=== PATIENT | female | born 1960 | race African-American/Black ===

== ENCOUNTER 2019-09-11 15:59 | Emergency (ER) | payer OTHER ==
[~2019-09-11] VITALS: Ht 172.7 cm; Wt 112.0 kg
[2019-09-11 16:10] VITALS: BP 122/86
--- NOTE | 2019-09-11 16:22 | PHYS DOC ---
Past History Past Medical History: Diabetes, Hypertension Past Surgical History: No Surgical History Alcohol Use: Rarely Drug Use: None Adult General Chief Complaint Chief Complaint: UPPER EXTREMITY INJURY HPI HPI Patient is a 58-year-old female, who works as a air crew officer, who states that she was closing a long-term cell gait, and her left wrist got caught in the gait, and she complains of pain on the dorsal aspect of her left wrist, just proximal to the carpus. She denies any other injuries. She denies any numbness or weakness and has full range of motion of her elbow, as well as her digits and hand. Palpation of the affected area worsens her pain. There are no alleviating factors to her symptoms. Review of Systems Review of Systems Constitutional: Denies fever or chills [] Musculoskeletal: Denies back pain or joint pain, other than as noted in the history of present illness[] Integument: Denies rash or skin lesions [] Neurologic: Denies focal weakness or sensory changes [] Allergies Allergies Allergies Coded Allergies Type Severity Reaction Last Updated Verified No Known Drug Allergies 09/11/19 No Physical Exam Physical Exam PHYSICAL EXAM: HEENT: Atruamatic NECK: Supple, normal ROM, non-tender. CARDIAC: Regular Rate and Rhythm LUNGS: Clear Bilaterally EXTREMITIES: There is mild soft tissue swelling and tenderness to palpation to the dorsum of the left distal forearm, just proximal to the carpus, without any focal bony tenderness to palpation or crepitus. The remainder of the upper extremity, and other extremities are atraumatic and unremarkable. Current Patient Data Vital Signs Vital Signs Date Time Temp Pulse Resp B/P (MAP) Pulse Ox O2 Delivery O2 Flow Rate FiO2 09/11/19 16:10 98.1 63 16 99 Room Air 09/11/19 16:09 122/86 (98) EKG EKG [] Radiology/Procedures Radiology/Procedures PROCEDURE: WRIST 3V LEFT Indication: Pain status post injury TECHNIQUE: 3 views of the left ankle COMPARISON: None FINDINGS: No acute fracture or dislocation. Mild wrist edema. No significant arthritic changes. IMPRESSION: As above. Course & Med Decision Making Course & Med Decision Making Pertinent Imaging studies reviewed. (See chart for details) []Patient remains stable. I discussed test results, the need for close follow- up, and return precautions. Dragon Disclaimer Dragon Disclaimer This electronic medical record was generated, in whole or in part, using a voice recognition dictation system. Departure Departure: Impression: Primary Impression: Wrist contusion Disposition: 01 HOME, SELF-CARE Condition: STABLE Referrals: PERRY HOLCOMB (PCP) Patient Instructions: Contusion Additional Instructions: Ibuprofen 400-600 mg every 6 hours may help improve your symptoms. Applying an ice pack to the affected area may help improve your symptoms. WILLIE VICTORIA MD Sep 11, 2019 16:22
--- NOTE | 2019-09-11 16:40 | RAD ---
Indication: Pain status post injury TECHNIQUE: 3 views of the left ankle COMPARISON: None FINDINGS: No acute fracture or dislocation. Mild wrist edema. No significant arthritic changes. IMPRESSION: As above. Electronically signed by: Sanchez Avila DO (09/11/2019 4:37 PM) [facility]
== END 2019-09-11 16:48 | disposition home or self-care (01) ==
LOC: ER 15:59
DX: S60.212A Contusion of left wrist, initial encounter (principal); E11.9 Type 2 diabetes mellitus without complications; I10 Essential (primary) hypertension; W23.0XXA Caught, crushed, jammed, or pinched between moving objects, initial encounter; Y93.89 Activity, other specified; Y92.148 Other place in prison as the place of occurrence of the external cause; Y99.0 Civilian activity done for income or pay
CPT/HCPCS: 73110; 99284